=== PATIENT | male | born 1970 | race Caucasian/White ===

== ENCOUNTER 2023-02-27 11:52 | Emergency (ER) | payer MEDICAID ==
[~2023-02-27] VITALS: Ht 172.7 cm; Wt 68.4 kg
[2023-02-27 12:35] VITALS: BP 142/87; PULSE 95; RESP 18; TEMP 98.1; O2SAT 98
[2023-02-27 13:02] LABS: CLARITY,URINE CLEAR (Clear); COLOR,URINE YELLOW (Yellow); GLUCOSE, URINE NEGATIVE (Neg); KETONES,URINE NEGATIVE (Neg); LEUKOCYTE ESTERASE ,URINE NEGATIVE (Neg); NITRITES, URINE NEGATIVE (Neg); OCCULT BLOOD,URINE NEGATIVE (Neg); PH,URINE 5.5 (4.8-8.0); PROTEIN,URINE NEGATIVE (Neg); UROBILINOGEN,URINE 0.2 E.U/dL (0.2-1.0)
[2023-02-27 13:03] LABS: UA COLLECTION TYPE CLN CATCH MIDSTREAM
[2023-02-27 13:59] LABS: BASOPHILS # (AUTO) 0.1 X10'3 (0-0.2); BASOPHILS % (AUTO) 1.3 % (0-1); EOSINOPHILS # (AUTO) 0.6 X10'3 (0-0.9); EOSINOPHILS % (AUTO) 8.6 % (0-6); HEMATOCRIT 41.3 % (42.0-52.0); LYMPHOCYTES # (AUTO) 2.2 X10'3 (1.1-4.8); LYMPHOCYTES % (AUTO) 32.1 % (21-51); MEAN CORPUSCULAR HGB CONC 33.9 g/dL (33.0-36.5); MEAN CORPUSCULAR VOLUME 82.7 FL (78-98); MEAN PLATELET VOLUME 8.4 FL (7.4-10.4); MONOCYTES # (AUTO) 0.7 X10'3 (0-0.9); MONOCYTES % (AUTO) 9.7 % (2-12); NEUTROPHILS # (AUTO) 3.3 X10'3 (1.8-7.7); NEUTROPHILS % (AUTO) 48.3 % (42-75); PLATELET COUNT 254 X10'3 (140-440); WHITE BLOOD COUNT 6.8 X10'3 (4.5-11.0)
[2023-02-27 14:06] LABS: ALANINE AMINOTRANSFERASE 28 U/L (12-78); ALBUMIN 3.6 G/DL (3.4-5.0); ALKALINE PHOSPHATASE 92 IU/L (46-116); ANION GAP 10 (8-16); ASPARTATE AMINO TRANSFERASE 14 U/L (10-37); BILIRUBIN,TOTAL 0.2 MG/DL (0.1-1.0); BLOOD UREA NITROGEN 12 MG/DL (7-18); BUN/CREATININE RATIO 12.6 (10.0-20.0); CALCIUM 9.2 MG/DL (8.5-10.1); CHLORIDE 104 MMOL/L (99-107); CREATININE 0.95 MG/DL (0.60-1.10); GLUCOSE 134 MG/DL (70-104); LIPASE 207 U/L (73-393); POTASSIUM 3.9 MMOL/L (3.5-5.1); SODIUM 142 MMOL/L (135-145); TOTAL CARBON DIOXIDE 27.6 MMOL/L (24-32); TOTAL PROTEIN 7.1 G/DL (6.4-8.2); eGFR 84 ML/MIN
== END 2023-02-27 21:16 | disposition left against medical advice (07) ==
LOC: ER 11:54
DX: R10.9 Unspecified abdominal pain (principal); Z53.21 Procedure and treatment not carried out due to patient leaving prior to being seen by health care provider
CPT/HCPCS: 36415; 80053; 81003; 83690; 85025; 99281

== ENCOUNTER 2024-01-16 21:49 | Emergency (ER) | payer MEDICAID ==
[~2024-01-16] VITALS: Ht 175.3 cm; Wt 79.5 kg
[2024-01-16 21:55] VITALS: BP 145/103; PULSE 117; RESP 16; TEMP 98.4; O2SAT 98
== END 2024-01-17 00:32 | disposition left against medical advice (07) ==
LOC: ER 21:49
DX: S91.312A Laceration without foreign body, left foot, initial encounter (principal); Z53.21 Procedure and treatment not carried out due to patient leaving prior to being seen by health care provider; W26.0XXA Contact with knife, initial encounter; Y93.89 Activity, other specified; Y92.89 Other specified places as the place of occurrence of the external cause; Y99.8 Other external cause status

== ENCOUNTER 2024-02-02 10:56 | Outpatient (CLI) | payer MEDICAID ==
[2024-02-02] MEDS ORDERED: iohexol 300mg/ml 100ml inj. ONE (11:07)
== END 2024-02-02 23:59 | disposition home or self-care (01) ==
LOC: RAD 10:56
PROVIDERS: ATTEND Surgery
DX: M51.37 Other intervertebral disc degeneration, lumbosacral region (principal); R10.30 Lower abdominal pain, unspecified
CPT/HCPCS: 74178; Q9967

== ENCOUNTER 2024-08-02 11:13 | Emergency (ER) | payer MEDICAID ==
[~2024-08-02] VITALS: Ht 175.3 cm; Wt 75.9 kg
[2024-08-02 13:08] LABS: BILIRUBIN,URINE NEGATIVE (Neg); CLARITY,URINE CLEAR (Clear); COLOR,URINE STRAW (Yellow); GLUCOSE, URINE NEGATIVE (Neg); KETONES,URINE NEGATIVE (Neg); LEUKOCYTE ESTERASE ,URINE NEGATIVE (Neg); NITRITES, URINE NEGATIVE (Neg); OCCULT BLOOD,URINE NEGATIVE (Neg); PH,URINE 6.5 (4.8-8.0); PROTEIN,URINE NEGATIVE (Neg); UROBILINOGEN,URINE 0.2 E.U/dL (0.2-1.0)
[2024-08-02 13:10] LABS: UA COLLECTION TYPE CLN CATCH MIDSTREAM
[2024-08-02] MEDS ORDERED: MUPI22OI30 TOP (13:36)
[2024-08-02] MEDS ORDERED: FLO0.4C PO (13:36)
[2024-08-02 13:45] VITALS: BP 159/74; PULSE 72; RESP 16; TEMP 98; O2SAT 98
== END 2024-08-02 13:46 | disposition home or self-care (01) ==
LOC: ER 11:13
DX: R33.9 Retention of urine, unspecified (principal); L30.9 Dermatitis, unspecified
CPT/HCPCS: 51798; 81003; 99284